=== PATIENT | female | born 1955 | race Caucasian/White ===

== ENCOUNTER 2018-07-03 09:20 | Emergency (ER) | payer MEDICARE, OTHER ==
[~2018-07-03] VITALS: Ht 157.5 cm; Wt 55.3 kg
[2018-07-03] MEDS ORDERED: NS IV 500 ML 500 ML IV ONE (09:49)
[2018-07-03 10:00] LABS: BASOPHILS # (AUTO) 0.1 10^3/uL (0.0-0.1); BASOPHILS % (AUTO) 1 % (0-10); EOSINOPHILS # (AUTO) 0.1 10^3/uL (0.0-0.3); EOSINOPHILS % (AUTO) 1 % (0-10); HEMATOCRIT 23 % (35-52); HEMOGLOBIN 7.6 G/DL (11.5-16.0); LYMPHOCYTES # (AUTO) 3.1 X 10^3 (1.0-4.0); LYMPHOCYTES % (AUTO) 24 % (12-44); MEAN CORPUSCULAR HEMOGLOBIN 22 PG (25-34); MEAN CORPUSCULAR HGB CONC 33 G/DL (32-36); MEAN CORPUSCULAR VOLUME 67 FL (80-99); MEAN PLATELET VOLUME 9.4 FL (7.4-10.4); MONOCYTES # (AUTO) 0.8 X 10^3 (0.0-1.0); MONOCYTES % (AUTO) 6 % (0-12); NEUTROPHILS # (AUTO) 8.7 X 10^3 (1.8-7.8); NEUTROPHILS % (AUTO) 68 % (42-75); PLATELET COUNT 463 10^3/uL (130-400); RED CELL DISTRIBUTION WIDTH 15.1 % (10.0-14.5); WHITE BLOOD COUNT 12.8 10^3/uL (4.3-11.0)
[2018-07-03 10:14] LABS: ALANINE AMINOTRANSFERASE 13 U/L (0-55); ALBUMIN 4.2 GM/DL (3.2-4.5); ALKALINE PHOSPHATASE 68 U/L (40-136); BILIRUBIN,TOTAL 0.3 MG/DL (0.1-1.0); BUN/CREATININE RATIO 17; CALCIUM 9.6 MG/DL (8.5-10.1); CARBON DIOXIDE 23 MMOL/L (21-32); CHLORIDE 95 MMOL/L (98-107); CREATININE SERUM 0.71 MG/DL (0.60-1.30); GFR ESTIMATED > 60; GLUCOSE 116 MG/DL (70-105); POTASSIUM 3.8 MMOL/L (3.6-5.0); SODIUM 130 MMOL/L (135-145); TOTAL PROTEIN 7.1 GM/DL (6.4-8.2)
[2018-07-03 10:16] LABS: BILIRUBIN,URINE NEGATIVE (NEGATIVE); CLARITY,URINE SLIGHTLY CLOUDY; COLOR,URINE YELLOW; GLUCOSE, URINE (UA) NEGATIVE (NEGATIVE); KETONES,URINE NEGATIVE (NEGATIVE); LEUKOCYTE ESTERASE ,URINE 3+ (NEGATIVE); NITRITE,URINE NEGATIVE (NEGATIVE); PH,URINE 7 (5-9); PROTEIN,URINE NEGATIVE (NEGATIVE); UROBILINOGEN,URINE NORMAL (NORMAL)
[2018-07-03 10:25] LABS: BACTERIA,URINE FEW /HPF; RBC,URINE 0-2 /HPF
--- NOTE | 2018-07-03 10:44 | ED General ---
General Chief Complaint: General Problems/Pain Stated Complaint: WEAKNESS;BLOOD IN STOOL Nursing Triage Note: PT PRESENTS TO ER WITH COMPLAINT OF LOW HGB. PT STATES TUESDAY NIGHT, SHE STARTED FEELING SICK, WENT TO THE BATHROOM, PASSED OUT AND HIT FACE ON [place]. STATES SHE WAS OUT FOR A COUPLE SECONDS. STATES PRIOR, SHE HAD SEVERE ABD AND BACK PAIN. STATES SHE HAD TWO ROUNDS OF BLOODY DIARRHEA AFTER FAINTING. STATES AFTER THE DIARRHEA, SHE FELT A LOT BETTER. STATES WENT TO URGENT CARE TUESDAY MORNING. STATES THEY WERE CONCERNED ABOUT HER BLOOD PRESSURE 170/40 AND SENT HER TO SEE THE SMELTING ENGINEER DR AND HAVE BLOOD WORK DRAWN. PT STATES SHE RECIEVED A PHONE CALL TELLING HER THAT HER HGB WAS 7.9. STATES SHE WAS INSTRUCTED TO FOLLOW UP WITH A SURGEON TODAY, BUT PT DID NOT WANT TO SEE THE SURGEON AND CAME TO THIS ER. PT IS NOT CURRENTLY HAVING ANY PAIN, DIARRHEA, BUT IS CONCERNED WHAT HER HGB IS TODAY. Nursing Sepsis Screen: No Definite Risk Source of Information: Patient Exam Limitations: No Limitations History of Present Illness Date Seen by Provider: Jul 03, 2018 Time Seen by Provider: 10:30 Initial Comments Here with report of single episode of last week, 4 days ago. She apparently had to eat quickly. Her stomach was upset. She had gone home and went to bed. She woke up later and felt like she had to go the bathroom. She went to the bathroom and apparently passed out and hit her face on the laboratory. She has bruising to the medial aspect of the right eye and lateral aspect of the left side including the cheek. She had an episode of bloody diarrhea followed by another episode of bloody diarrhea. She went to an urgent care the next morning where they checked her out. She is found to have a hemoglobin of 7.6. She was called after that visit informed of her hemoglobin level and instructed to follow-up with the surgeon today. That is a surgeon she does not want to see in [place] so she came down here. Overall feels a little better. Denies bloody stool and states that she had a brown stool on Tuesday. Denies abdominal pain currently. Facial structures are improving. She has not had CT of the head or face in these evaluations. Does have history of hemorrhoid. Apparently has blood dyscrasia in which she is chronically anemic. This runs in her family as they have a problem utilizing iron. Usually runs in the nines with respect to hemoglobin. Denies fevers or chills. Denies any significant abdominal pain. Timing/Duration: 3-4 Days Severity: Moderate Associated Systoms: No Chest Pain, No Cough, No Fever/Chills, No Nausea/ Vomiting, No Shortness of Air; Syncope, Weakness Allergies and Home Medications Allergies Coded Allergies: No Known Drug Allergies (Unverified , 07/03/18) Patient Home Medication List Home Medication List Reviewed: Yes Review of Systems Review of Systems Constitutional: see HPI; No chills, No fever EENTM: see HPI; No ear pain, No vision loss Respiratory: No cough, No hemoptysis, No orthopnea Cardiovascular: No chest pain, No edema; syncope Gastrointestinal: No abdominal pain, No nausea, No vomiting Genitourinary: no symptoms reported Musculoskeletal: no symptoms reported Skin: see HPI, change in color; No lesions All Other Systems Reviewed Negative Unless Noted: Yes Past Laaymvh-Yekukh-Wwjtow Hx Past Med/Social Hx: Reviewed Nursing Past Med/Soc Hx Patient Social History Alcohol Use: Denies Use Recreational Drug Use: No Smoking Status: Current Everyday Smoker Type Used: Cigarettes Recent Foreign Travel: No Contact w/Someone Who Travel: No Recent Infectious Disease Expo: No Recent Hopitalizations: No Immunizations Up To Date Tetanus Booster (TDap): Unknown PED Vaccines UTD: Yes Seasonal Allergies Seasonal Allergies: No Past Medical History Surgeries: Yes Breast Respiratory: No Cardiac: No Neurological: No Genitourinary: No Gastrointestinal: No Endocrine: No HEENT: No Cancer: No Psychosocial: No Integumentary: No Blood Disorders: Yes (anemia) Family Medical History Reviewed Nursing Family Hx Physical Exam Vital Signs Vital Signs - First Documented 07/03/18 09:27 Temp 99.3 Pulse 99 Resp 20 B/P (MAP) 169/79 (109) Pulse Ox 100 O2 Delivery Room Air Capillary Refill : Less Than 3 Seconds Height, Weight, BMI Height: 5'2.00" Weight: 122lbs. oz. 55.596818oy; BMI Method:Stated General Appearance: No Apparent Distress, WD/WN HEENT: TMs Normal, Pharynx Normal, Other (ecchymosis noted as below.) Neck: Normal Inspection, Non Tender, Supple Respiratory: Chest Non Tender, Lungs Clear, Normal Breath Sounds, No Accessory Muscle Use, No Respiratory Distress Cardiovascular: Regular Rate, Rhythm, No Murmur Gastrointestinal: Non Tender, Soft Rectal: Black Stool, Hemorrhoids (to hemorrhoids to the perineal side at 12 o' clock) Back: Normal Inspection, No CVA Tenderness, No Vertebral Tenderness Extremity: Normal Range of Motion, Non Tender Neurologic/Psychiatric: Alert, Oriented x3 Skin: Warm/Dry, Ecchymosis (noted to the medial aspect of the right eye and eyelids with ecchymosis also noted to the left eye area lateral encompassing the cheek and lateral aspect of the face.), Other (abrasion noted to the left cheek area) Progress/Results/Core Measures Suspected Sepsis Recent Fever Within 48 Hours: No Infection Criteria Present: None New/Unexplained Altered Menta: No Sepsis Screen: No Definite Risk SIRS Temperature:99.3 Pulse: 99 Respiratory Rate: 20 Laboratory Tests 07/03/18 09:40: White Blood Count 12.8H Blood Pressure 169 /79 Mean: 109 Laboratory Tests 07/03/18 09:40: Creatinine 0.71, Platelet Count 463H, Total Bilirubin 0.3 Results/Orders Lab Results Laboratory Tests Test 07/03/18 09:40 07/03/18 09:57 Range/Units White Blood Count 12.8 H 4.3-11.0 10^3/uL Red Blood Count 3.50 L 4.35-5.85 10^6/uL Hemoglobin 7.6 L 11.5-16.0 G/DL Hematocrit 23 L 35-52 % Mean Corpuscular Volume 67 L 80-99 FL Mean Corpuscular Hemoglobin 22 L 25-34 PG Mean Corpuscular Hemoglobin Concent 33 32-36 G/DL Red Cell Distribution Width 15.1 H 10.0-14.5 % Platelet Count 463 H 130-400 10^3/uL Mean Platelet Volume 9.4 7.4-10.4 FL Neutrophils (%) (Auto) 68 42-75 % Lymphocytes (%) (Auto) 24 12-44 % Monocytes (%) (Auto) 6 0-12 % Eosinophils (%) (Auto) 1 0-10 % Basophils (%) (Auto) 1 0-10 % Neutrophils # (Auto) 8.7 H 1.8-7.8 X 10^3 Lymphocytes # (Auto) 3.1 1.0-4.0 X 10^3 Monocytes # (Auto) 0.8 0.0-1.0 X 10^3 Eosinophils # (Auto) 0.1 0.0-0.3 10^3/uL Basophils # (Auto) 0.1 0.0-0.1 10^3/uL Sodium Level 130 L 135-145 MMOL/L Potassium Level 3.8 3.6-5.0 MMOL/L Chloride Level 95 L 98-107 MMOL/L Carbon Dioxide Level 23 21-32 MMOL/L Anion Gap 12 5-14 MMOL/L Blood Urea Nitrogen 12 7-18 MG/DL Creatinine 0.71 0.60-1.30 MG/DL Estimat Glomerular Filtration Rate > 60 BUN/Creatinine Ratio 17 Glucose Level 116 H 70-105 MG/DL Calcium Level 9.6 8.5-10.1 MG/DL Corrected Calcium 9.4 8.5-10.1 MG/DL Total Bilirubin 0.3 0.1-1.0 MG/DL Aspartate Amino Transf (AST/SGOT) 17 5-34 U/L Alanine Aminotransferase (ALT/SGPT) 13 0-55 U/L Alkaline Phosphatase 68 40-136 U/L Total Protein 7.1 6.4-8.2 GM/DL Albumin 4.2 3.2-4.5 GM/DL Urine Color YELLOW Urine Clarity SLIGHTLY CLOUDY Urine pH 7 5-9 Urine Specific [place] 1.015 L 1.016-1.022 Urine Protein NEGATIVE NEGATIVE Urine Glucose (UA) NEGATIVE NEGATIVE Urine Ketones NEGATIVE NEGATIVE Urine Nitrite NEGATIVE NEGATIVE Urine Bilirubin NEGATIVE NEGATIVE Urine Urobilinogen NORMAL NORMAL MG/DL Urine Leukocyte Esterase 3+ H NEGATIVE Urine RBC (Auto) 2+ H NEGATIVE Urine RBC 0-2 /HPF Urine WBC 10-25 H /HPF Urine Squamous Epithelial Cells 5-10 /HPF Urine Crystals NONE /LPF Urine Bacteria FEW H /HPF Urine Casts NONE /LPF Urine Mucus NEGATIVE /LPF Urine Culture Indicated YES My Orders Orders - CITLALLI LAGUNAS MD Cbc With Automated Diff (07/03/18 09:49) Comprehensive Metabolic Panel (07/03/18 09:49) Ua Culture If Indicated (07/03/18 09:49) Ct Head/Face/Cervical Wo (07/03/18 09:49) Fecal Occult Bedside (07/03/18 09:49) Saline Lock/Iv-Start (07/03/18 09:49) Ns Iv 500 Ml (Sodium Chloride 0.9%) (07/03/18 09:49) Type And Screen (07/03/18 09:51) Urine Culture (07/03/18 09:57) Ct Abdomen/Pelvis W (07/03/18 10:46) Iohexol Injection (Omnipaque 350 Mg/Ml 1 (07/03/18 11:00) Contrast Received (Contrast Received) (07/03/18 11:00) Ns (Ivpb) (Sodium Chloride 0.9% Ivpb Bag (07/03/18 11:00) Medications Given in ED Current Medications Medications Dose Ordered Sig/Joyce Route Start Time Stop Time Status Last Admin Dose Admin Iohexol 100 ml ONCE ONCE IV 07/03/18 11:00 07/03/18 11:01 DC 07/03/18 11:09 100 ML Sodium Chloride 100 ml ONCE ONCE IV 07/03/18 11:00 07/03/18 11:01 DC 07/03/18 11:10 80 ML Sodium Chloride 500 ml @ 0 mls/hr Q0M ONCE IV 07/03/18 09:49 07/03/18 09:51 DC 07/03/18 10:13 500 MLS/HR Vital Signs/I&O 07/03/18 09:27 Temp 99.3 Pulse 99 Resp 20 B/P (MAP) 169/79 (109) Pulse Ox 100 O2 Delivery Room Air Capillary Refill : Less Than 3 Seconds Blood Pressure Mean: 109 Progress Note : Progress Note Seen and evaluated. IV, labs, UA, normal saline 500 mL bolus and Hemoccult stool performed. This was positive. CT head, face and neck ordered. We will also add CT of abdomen pelvis due to continuation of the blood. 1150: CT complete. Patient has not had significant bloody stool since being here and she still feels better. I did discuss the case with Dr. Osei. He would like to see her in office tomorrow at 2 p.m. Likely upper and lower endoscopy on Tuesday. All of this was discussed with patient and family and they're very appreciative of the follow-up and care. Discharged home with return precautions. Patient verbalize understanding instructions and agreement with plan. Diagnostic Imaging Diagonstic Imaging: CT Plain Films/CT/US/NM/MRI: facial bones, c-spine, head Comments NAME: [facility] REC#: [id number] PT STATUS: REG ER : 1955 PHYSICIAN: CITLALLI LAGUNAS MD ADMIT DATE: 07/03/18/ER Draft Date of Exam:07/03/18 CT HEAD/FACE/CERVICAL WO PROCEDURE: CT head, face, and cervical spine without contrast. TECHNIQUE: Multiple contiguous axial images were obtained through the head, neck, and facial bones without the use of intravenous contrast. Sagittal and coronal reformations through the cervical spine and facial bones were also performed. INDICATION: Fall with injury to left side of the face. COMPARISON: No prior studies are available for comparison. FINDINGS: CT HEAD: The ventricles and sulci are within normal limits. No sulcal effacement or midline shift is seen. There is moderate periventricular hypodensity noted consistent with chronic microvascular ischemia. No acute intra-axial or extra-axial hemorrhage is identified. Cisterns are patent. Visualized paranasal sinuses are clear. IMPRESSION: Changes of chronic microvascular ischemia. No acute intracranial process is detected. CT CERVICAL SPINE: Alignment is normal. There is multilevel degenerative disc disease with variable disc space narrowing and marginal spurring. Prevertebral tissues are within normal limits. No fractures are seen. Odontoid is intact. IMPRESSION: Cervical spondylosis. No acute bony abnormality is detected. CT MAXILLOFACIAL: The mandible is intact. Zygomatic arches are intact. The maxillary sinus dennis are unremarkable. No nasal bone fracture is seen. The orbital dennis are intact. There appears to be some mild soft tissue swelling left periorbital and left facial soft tissues. IMPRESSION: Left soft tissue swelling. No facial bone fracture is detected. Dictated on workstation # [id number] Dict: 07/03/18 1028 Trans: 07/03/18 1043 [id number] Interpreted by: CARLOS ALBERTO CORBIN MD Electronically signed by: Diagonstic Imaging: CT Plain Films/CT/US/NM/MRI: abdomen, pelvis Comments [facility] [place] NAME: [facility] REC#: [id number] PT STATUS: REG ER : 1955 PHYSICIAN: CITLALLI LAGUNAS MD ADMIT DATE: 07/03/18/ER Draft Date of Exam:07/03/18 CT ABDOMEN/PELVIS W PROCEDURE: CT abdomen and pelvis with contrast. TECHNIQUE: Multiple contiguous axial images were obtained through the abdomen and pelvis after administration of intravenous contrast. INDICATION: Weakness and blood in the stools x 5 days. COMPARISON: No prior studies are available for comparison. FINDINGS: The lung bases are clear apart from minimal atelectasis or scarring in the posterior left lower lobe. No discrete liver mass is identified. The gallbladder is contracted. No biliary ductal dilatation is seen. The pancreas and spleen are unremarkable. No adrenal mass is identified. The kidneys are unremarkable. The aorta is heavily calcified but nonaneurysmal. The small and large bowel loops are of normal caliber without evidence of obstruction. There is diverticulosis of the sigmoid colon but no evidence of acute diverticulitis. Diverticuli of the descending colon are also seen. There is no ascites. The bladder and uterus are unremarkable. Healed right-sided pelvic rami fractures are noted. IMPRESSION: 1. Uncomplicated diverticulosis. 2. No other significant abnormality is detected. No acute feature is identified. Dictated on workstation # [id number] Dict: 07/03/18 1121 Trans: 07/03/18 1127 [id number] Interpreted by: CARLOS ALBERTO CORIBN MD Electronically signed by: Reviewed: Reviewed by Me Departure Impression Primary Impression: Gastrointestinal bleeding Qualified Codes: K92.2 - Gastrointestinal hemorrhage, unspecified Disposition: 01 HOME, SELF-CARE Condition: Improved Departure-Patient Inst. Decision time for Depature: 11:57 Referrals: NO,LOCAL PHYSICIAN (PCP) Primary Care Physician KIRK OSEI MD Patient Instructions: Gastrointestinal Bleeding (DC) Add. Discharge Instructions: All discharge instructions reviewed with patient and/or family. Voiced understanding. Follow-up with Dr. Osei's office tomorrow at 2 p.m. You may eat a light diet and drink plenty of fluids. Return for worse pain, return of bloody stool, weakness, breathing problems or other concerns as needed. Copy Copies To 1: KIRK OSEI MD, TIMOTHY D MD Jul 03, 2018 10:44
[2018-07-03] MEDS ORDERED: NS 100 ML (IVPB) BAG IV ONE (11:00)
[2018-07-03] MEDS ORDERED: IOHEXOL 350 MG/ML 100 ML (OMNIPAQUE 350) VIAL IV ONE (11:00)
[2018-07-03] MEDS ORDERED: RECEIVED CONTRAST (Hold Metformin) IV SCH (11:00)
--- NOTE | 2018-07-03 11:27 | Diagnostic Imaging Report ---
PROCEDURE: CT abdomen and pelvis with contrast. TECHNIQUE: Multiple contiguous axial images were obtained through the abdomen and pelvis after administration of intravenous contrast. INDICATION: Weakness and blood in the stools x 5 days. COMPARISON: No prior studies are available for comparison. FINDINGS: The lung bases are clear apart from minimal atelectasis or scarring in the posterior left lower lobe. No discrete liver mass is identified. The gallbladder is contracted. No biliary ductal dilatation is seen. The pancreas and spleen are unremarkable. No adrenal mass is identified. The kidneys are unremarkable. The aorta is heavily calcified but nonaneurysmal. The small and large bowel loops are of normal caliber without evidence of obstruction. There is diverticulosis of the sigmoid colon but no evidence of acute diverticulitis. Diverticuli of the descending colon are also seen. There is no ascites. The bladder and uterus are unremarkable. Healed right-sided pelvic rami fractures are noted. IMPRESSION: 1. Uncomplicated diverticulosis. 2. No other significant abnormality is detected. No acute feature is identified. Dictated by: Dictated on workstation # [id number]
[2018-07-03 12:09] VITALS: BP 149/71
== END 2018-07-03 12:09 | disposition home or self-care (01) ==
LOC: ER 09:22
DX: K92.2 Gastrointestinal hemorrhage, unspecified (principal); S09.90XA Unspecified injury of head, initial encounter; D64.9 Anemia, unspecified; F17.210 Nicotine dependence, cigarettes, uncomplicated; Z87.19 Personal history of other diseases of the digestive system; Z98.890 Other specified postprocedural states; W19.XXXA Unspecified fall, initial encounter
CPT/HCPCS: 36415; 70450; 70486; 72125; 74177; 80053; 81000; 85025; 86850; 86900; 86901; 87088

== ENCOUNTER 2018-07-06 05:45 | Outpatient (CLI) | payer MEDICARE ==
[~2018-07-06] VITALS: Ht 157.5 cm; Wt 55.3 kg
== END 2018-07-06 12:06 | disposition home or self-care (01) ==
LOC: PREOP 05:45
PROVIDERS: ATTEND Surgery
DX: Z01.818 Encounter for other preprocedural examination (principal)

== ENCOUNTER 2018-07-07 12:26 | Day surgery (SDC) | payer MEDICARE ==
[~2018-07-07] VITALS: Ht 157.5 cm; Wt 55.3 kg
[2018-07-07] MEDS ORDERED: LIDOCAINE JELLY 2% 6 ML SYRINGE MM PRN (12:45)
[2018-07-07] MEDS ORDERED: MIDAZOLAM 2 MG/2 ML (VERSED) VIAL IVP ONE (12:45)
[2018-07-07] MEDS ORDERED: fentaNYL INJECTION 100 MCG/2 ML AMP IVP ONE (12:45)
[2018-07-07] MEDS ORDERED: HURRICAINE EXT TUBE (BENZOCAINE) XX PRN (12:45)
[2018-07-07] MEDS ORDERED: NS IV 500 ML 500 ML ONE ×2 (12:55→14:57)
[2018-07-07 13:05] VITALS: BP 121/68
[2018-07-07] MEDS: NS IV 500 ML 500 ML IV PRN ×2 (13:07→14:55)
[2018-07-07] MEDS ORDERED: MIDAZOLAM 2 MG/2 ML (VERSED) VIAL ONE ×4 (14:37)
[2018-07-07] MEDS ORDERED: LIDOCAINE JELLY 2% 6 ML SYRINGE ONE (14:38)
[2018-07-07] MEDS ORDERED: fentaNYL INJECTION 100 MCG/2 ML AMP ONE (14:38)
[2018-07-07] MEDS ORDERED: HURRICAINE EXT TUBE (BENZOCAINE) ONE (14:38)
[2018-07-07 15:50] VITALS: BP 134/63
[2018-07-07 16:35] VITALS: BP 130/64
[2018-07-07 16:46] VITALS: BP 130/64
--- NOTE | 2018-07-07 16:49 | Conscious Sedation/ASA ---
Conscious Sedation Pre-Proced Time 13:00 ASA Score 2 For ASA 3 and 4: Consider anesthesia and medical clearance. Also, for patients with a history of failed moderate sedation consider anesthesia. Airway Lungs Heart ASA score ASA 1: a normal healthy patient ASA 2: a patient with a mild systemic disease (mid diabetes, controlled hypertension, obesity ASA 3: a patient with a severe systemic disease that limits activity (angina , COPD, prior Myocardial infarction) ASA 4: a patient with an incapacitating disease that is a constant threat to life (CHF, renal failure) ASA 5: a moribund patient not expected to survive 24 hrs. (ruptured aneurysm) ASA 6: a declared brain patient whose organs are being harvested. For emergent operations, add the letter E after the classification Mallampati Classification Grade 2 Sedation Plan Analgesia, Amnesia, Plan communicated to team members, Discussed options with patient/fam, Discussed risks with patient/fam The patient is an appropriate candidate to undergo the planned procedure, sedation, and anesthesia. The patient immediately re-assessed prior to indication. KIRK ANGEL MD Jul 07, 2018 16:49
--- NOTE | 2018-07-07 16:49 | Progress Note-Pre Operative ---
Pre-Operative Progress Note H&P Reviewed The H&P was reviewed, patient examined and no changes noted. Date Seen by Provider: Jul 07, 2018 Time Seen by Provider: 13:00 Date H&P Reviewed: Jul 07, 2018 Time H&P Reviewed: 13:00 Pre-Operative Diagnosis: anemia, rectal bleed KIRK ANGEL MD Jul 07, 2018 16:49
--- NOTE | 2018-07-07 16:51 | Progress Note-Post Operative ---
Post-Operative Progess Note Surgeon (s)/Cell Operator (s) Surgeon KIRK ANGEL MD Cell Operator: none Pre-Operative Diagnosis anemia, rectal bleed Post-Operative Diagnosis reflux eosphagitis(stage 2), small HH(1.5cm), mild gastritis. chronic stage 1 ext and int hemorrhoid, moderate-severe sigmoid diverticulosis. Procedure & Operative Findings Date of Procedure 07/07/18 Procedure Performed/Findings EGD with bx. Colonoscopy. Anesthesia Type CS Estimated Blood Loss Estimated blood loss (mL): minimal Specimens/Packing Specimens Removed GE jxn, antrum KIRK ANGEL MD Jul 07, 2018 16:51
--- NOTE | 2018-07-08 03:22 | OPERATIVE REPORT ---
DATE OF SERVICE: 07/07/2018 PREOPERATIVE DIAGNOSES: Rectal bleed, syncopal episode. POSTOPERATIVE DIAGNOSES: Reflux esophagitis stage II, small hiatal hernia approximately 1.5 cm in size, mild gastritis, gowlrjqr-du-[id number] sigmoid diverticulosis. PROCEDURE: EGD with biopsy, colonoscopy. SURGEON: Kirk Angel MD ANESTHESIA: Conscious sedation. ESTIMATED BLOOD LOSS: Minimal. FINDINGS: EGD, reflux esophagitis stage II, no ulcers or strictures or bleeding. There was a small hiatal hernia approximately 1.5 cm in size. There was a mild gastritis. No formal ulcerations, polyps or any neoplasms or any active bleeding sources. Pylorus and duodenum appeared normal. Colonoscopy: Mild chronic stage I external and internal hemorrhoids, [id number]-[id number] sigmoid diverticulosis with no mucosal inflammatory changes to indicate any active diverticulitis as well as no active bleeding. The remainder of the colon was normal. There were no polyps or any neoplasms identified. DISPOSITION: The patient tolerated the procedure well. INDICATIONS: The patient is a 63-year-old female who was seen in the Emergency Department after having what she reports as a stomachache as well as associated vomiting and then diarrhea. She was walking to the bathroom and had a vasovagal episode as well as an abrasion to the face from the fall. She regained consciousness within seconds, however, did report passing bright red blood per rectum when she did have a bowel movement. She was seen in the Emergency Department and was found to have a hemoglobin of 7.6. She did undergo a CT scan, which was unremarkable. She has not had a colonoscopy up to this point in her life. She does not report any major issues with reflux or regurgitation. DESCRIPTION OF PROCEDURE: The patient was brought to the endoscopy suite, laid in the left lateral decubitus position. After adequate IV pain and sedating medications and conscious sedation anesthesia, the mouthpiece was applied. The endoscope was placed into the mouth, visualizing the pharynx and hypopharyngeal region. Vocal cords, epiglottis and vallecula identified and appeared to be normal. The endoscope was then gently intubated at the esophageal opening and esophagus insufflated. Endoscope was then gently intubated at the esophagus and esophagus insufflated. The endoscope was then advanced to the first, second and third portions of the esophagus. At the level of the GE junction, a reflux esophagitis stage II identified. There were no ulcers or any bleeding identified. A biopsy was taken with forceps with visualization of good hemostasis. The endoscope was then advanced in the stomach and endoscope retroflexed, visualizing a small hiatal hernia approximately 1.5 cm in size. There was a mild gastritis. There were no formal ulcerations, polyps or any active bleeding sources. A biopsy was taken of the stomach antrum to rule out H. pylori with forceps with visualization of good hemostasis. The endoscope was then advanced to the pylorus and the first and second portion of the duodenum, which appeared normal with no distal obstructions or any ulcerations or bleeding sources. The endoscope was then slowly withdrawn while taking a second look and suctioning of residual air with no additional findings. The patient tolerated this portion of the procedure well. We will recommend continued medical management for reflux esophagitis as well as a small hiatal hernia, which should be small and more frequent meals, avoidance of eating at night as well as head elevation while lying supine and she also needs to avoid caffeinated beverages, spicy, greasy and acidic foods. Under the same anesthesia, we then proceeded with a colonoscopy portion of the procedure. A digital rectal examination was performed, which revealed mild chronic stage I external and internal hemorrhoids not actively edematous nor inflamed and no bleeding. Normal sphincter tone was felt and there were no palpable masses. The endoscope was then intubated to the anus and rectum gently insufflated. The endoscope was then advanced to the valves of Christians[place] of the rectum with no polyps or any neoplasms identified as well as no mucosal inflammatory changes. Through the sigmoid colon, a [id number] sigmoid diverticulosis identified. There were no mucosal inflammatory changes to indicate any active diverticulitis. The endoscope was then advanced through the remainder of the descending, transverse and ascending colon to the cecum. These segments were normal. There were no polyps or any neoplasms identified as well as no mucosal inflammatory changes as well as no active bleeding sources. The endoscope was then slowly withdrawn while taking a second look and suctioning of residual air with no additional findings. The patient tolerated the procedure well. We feel that the episode of rectal bleeding was due to a bleeding diverticulosis, which stopped on its own. Our recommendation would be medical management with a high fiber diet with at least 30 grams of fiber per day as well as copious amounts of water to promote soft stools on a daily basis and never have any well-formed or hard stools that require straining upon defecation or pressure formation within the lumen of the sigmoid colon. Job ID: [id number] DocumentID: [id number] Dictated Date: 07/07/2018 15:34:53 Process Improvement Engineer Date: 07/08/2018 03:21:56 Dictated By: KIRK ANGEL MD
== END 2018-07-07 16:45 | disposition home or self-care (01) ==
LOC: ENDO 12:26
PROVIDERS: ATTEND Surgery
DX: K57.31 Diverticulosis of large intestine without perforation or abscess with bleeding (principal); K64.0 First degree hemorrhoids; K21.0 Gastro-esophageal reflux disease with esophagitis; K44.9 Diaphragmatic hernia without obstruction or gangrene; K29.70 Gastritis, unspecified, without bleeding; F17.210 Nicotine dependence, cigarettes, uncomplicated
CPT/HCPCS: 88305